=== PATIENT | female | born 1980 | race Caucasian/White ===

== ENCOUNTER → 2018-06-10 | Outpatient (CLI) | payer MEDICARE ==
--- NOTE | 2018-06-10 12:06 | US ---
EXAMINATION TYPE: US venous doppler duplex LE RT DATE OF EXAM: 06/10/2018 11:39 AM COMPARISON: NONE CLINICAL HISTORY: I80.9 Phlebitis and thrombophlebitis of unspec.... Patient fell 05/18/18, dislocate d right knee. Pain and edema right lower leg SIDE PERFORMED: right TECHNIQUE: The lower extremity deep venous system is examined utilizing real time linear array sonog agustín with graded compression, doppler sonography and color-flow sonography. VESSELS IMAGED: External Iliac Vein (EIV) Common Femoral Vein Deep Femoral Vein Greater Saphenous Vein * Femoral Vein Popliteal Vein Small Saphenous Vein * Proximal Calf Veins (* superficial vessels) Right Leg: No evidence of DVT. Only short segment of PTV visualized IMPRESSION: No evidence for DVT at this time.
== END | disposition home or self-care (01) ==
LOC: RADUSWWP 11:11
PROVIDERS: ATTEND Orthopaedic Surgery
DX: I80.9 Phlebitis and thrombophlebitis of unspecified site (principal); M22.3X1 Other derangements of patella, right knee; F17.200 Nicotine dependence, unspecified, uncomplicated

== ENCOUNTER 2018-07-30 12:09 | Emergency (ER) | payer MEDICARE ==
[2018-07-30 12:28] VITALS: RESP 16
[2018-07-30] MEDS ORDERED: SODIUM CHLORIDE 0.9% 1,000 ML IV STA (12:52)
[2018-07-30] MEDS ORDERED: PANTOPRAZOLE 40 MG/10 ML VIAL IVP STA (12:52)
--- NOTE | 2018-07-30 12:59 | ED ---
Weakness HPI - General Chief complaint: GI Bleed Stated complaint: Rectal bleeding/back pain Time Seen by Provider: 07/30/18 12:52 Source: patient, RN notes reviewed, old records reviewed Mode of arrival: ambulatory Limitations: no limitations - History of Present Illness Initial comments: This is a 29-year-old female the ER for evaluation. Today she presents for evaluation regards to weakness. Blood in her stool, weight loss. Patient does feel lightheaded and dizzy at times. No episodes of syncope or near-syncope. No recent travel history no significant sick contacts. Patient is possibly increasing the last 2 years but more pronounced in the last month and a half. No significant family history of CVA. No change in appetite no diarrhea or intentional weight loss, no no exercise MD Complaint: generalized weakness (Weight loss) -: year(s) Location: generalized Severity: mild Severity scale (1-10): 3 Quality: other (No pain) Consistency: constant Improves with: none Worsens with: none Context: other (Denies) Associated Symptoms: dark stools, loss of appetite, nausea/vomiting - Related Data Home Medications Medication Instructions Recorded Confirmed Multivitamins, Thera [Multivitamin 1 tab PO DAILY 07/30/18 07/30/18 (formulary)] diphenhydrAMINE [Benadryl] 50 mg PO HS 07/30/18 07/30/18 Previous Rx's Medication Instructions Recorded Nitrofurantoin Monohyd/M-Cryst 100 mg PO Q12HR #14 cap 07/30/18 [Macrobid] Allergies Allergy/AdvReac Type Severity Reaction Status Date / Time No Known Allergies Allergy Verified 07/30/18 13:06 Review of Systems ROS Statement: Those systems with pertinent positive or pertinent negative responses have been documented in the HPI. ROS Other: All systems not noted in ROS Statement are negative. Past Medical History Past Medical History: No Reported History History of Any Multi-Drug Resistant Organisms: None Reported Past Surgical History: No Surgical Hx Reported Past Psychological History: ADD/ADHD, Anxiety, Depression, Panic Disorder Smoking Status: Current every day smoker Past Alcohol Use History: None Reported Past Drug Use History: None Reported General Exam Limitations: no limitations General appearance: alert, in no apparent distress Head exam: Present: atraumatic, normocephalic, normal inspection Eye exam: Present: normal appearance, PERRL, EOMI. Absent: scleral icterus, conjunctival injection, periorbital swelling ENT exam: Present: normal exam, mucous membranes moist Neck exam: Present: normal inspection. Absent: tenderness, meningismus, lymphadenopathy Respiratory exam: Present: normal lung sounds bilaterally. Absent: respiratory distress, wheezes, rales, rhonchi, stridor Cardiovascular Exam: Present: regular rate, normal rhythm, normal heart sounds. Absent: systolic murmur, diastolic murmur, rubs, gallop, clicks GI/Abdominal exam: Present: soft, normal bowel sounds. Absent: distended, tenderness, guarding, rebound, rigid Extremities exam: Present: normal inspection, full ROM, normal capillary refill. Absent: tenderness, pedal edema, joint swelling, calf tenderness Back exam: Present: normal inspection Neurological exam: Present: alert, oriented X3, CN II-XII intact Psychiatric exam: Present: normal affect, normal mood Skin exam: Present: warm, dry, intact, normal color. Absent: rash Course Vital Signs 07/30/18 07/30/18 12:25 13:17 Temperature 98.2 F Pulse Rate 85 77 Respiratory 16 16 Rate Blood Pressure 127/76 120/80 O2 Sat by Pulse 96 97 Oximetry - Reevaluation(s) Reevaluation #1: 07/30/18 15:37 Medical record reviewed Reevaluation #2: 07/30/18 15:37 Patient and family at length regarding results, questions answered Medical Decision Making - Medical Decision Making 29 female the ER for evaluation of what she thought was blood in her stools. As well as in urine, patient be treated for hemorrhagic cystitis, cultured and discharged home - Lab Data Result diagrams: 07/30/18 13:20 07/30/18 13:20 Lab Results 07/30/18 07/30/18 07/30/18 Range/Units 13:15 13:20 13:20 WBC 10.6 (3.8-10.6) k/uL RBC 4.94 (3.80-5.40) m/uL Hgb 14.2 (11.4-16.0) gm/dL Hct 44.2 (34.0-46.0) % MCV 89.5 (80.0-100.0) fL MCH 28.8 (25.0-35.0) pg MCHC 32.1 (31.0-37.0) g/dL RDW 12.9 (11.5-15.5) % Plt Count 362 (150-450) k/uL Neutrophils % 72 % Lymphocytes % 20 % Monocytes % 4 % Eosinophils % 1 % Basophils % 0 % Neutrophils # 7.7 (1.3-7.7) k/uL Lymphocytes # 2.2 (1.0-4.8) k/uL Monocytes # 0.4 (0-1.0) k/uL Eosinophils # 0.2 (0-0.7) k/uL Basophils # 0.0 (0-0.2) k/uL PT (9.0-12.0) sec INR (<1.2) APTT (22.0-30.0) sec Sodium (137-145) mmol/L Potassium (3.5-5.1) mmol/L Chloride (98-107) mmol/L Carbon Dioxide (22-30) mmol/L Anion Gap mmol/L BUN (7-17) mg/dL Creatinine (0.52-1.04) mg/dL Est GFR (CKD-EPI)AfAm (>60 ml/min/1.73 sqM) Est GFR (CKD-EPI)NonAf (>60 ml/min/1.73 sqM) Glucose (74-99) mg/dL Calcium (8.4-10.2) mg/dL Phosphorus (2.5-4.5) mg/dL Magnesium (1.6-2.3) mg/dL Total Bilirubin (0.2-1.3) mg/dL AST (14-36) U/L ALT (9-52) U/L Alkaline Phosphatase (38-126) U/L Troponin I (0.000-0.034) ng/mL Total Protein (6.3-8.2) g/dL Albumin (3.5-5.0) g/dL Lipase (23-300) U/L Urine Color Dark Brown Urine Appearance Turbid H (Clear) Urine pH 6.0 (5.0-8.0) Ur Specific [place] 1.029 (1.001-1.035) Urine Protein 2+ H (Negative) Urine Glucose (UA) Negative (Negative) Urine Ketones 3+ H (Negative) Urine Blood Large H (Negative) Urine Nitrite Negative (Negative) Urine Bilirubin Negative (Negative) Urine Urobilinogen 3.0 (<2.0) mg/dL Ur Leukocyte Esterase Large H (Negative) Urine RBC >182 H (0-5) /hpf Urine WBC 28 H (0-5) /hpf Ur Squamous Epith Cells 46 H (0-4) /hpf Urine Bacteria Rare H (None) /hpf Urine Mucus Many H (None) /hpf Blood Type O Positive Blood Type Recheck No Antibody Screen NEGATIVE Spec Expiration Date 08/02/2018231907/30/18 07/30/18 07/30/18 Range/Units 13:20 13:20 13:20 WBC (3.8-10.6) k/uL RBC (3.80-5.40) m/uL Hgb (11.4-16.0) gm/dL Hct (34.0-46.0) % MCV (80.0-100.0) fL MCH (25.0-35.0) pg MCHC (31.0-37.0) g/dL RDW (11.5-15.5) % Plt Count (150-450) k/uL Neutrophils % % Lymphocytes % % Monocytes % % Eosinophils % % Basophils % % Neutrophils # (1.3-7.7) k/uL Lymphocytes # (1.0-4.8) k/uL Monocytes # (0-1.0) k/uL Eosinophils # (0-0.7) k/uL Basophils # (0-0.2) k/uL PT 10.8 (9.0-12.0) sec INR 1.0 (<1.2) APTT 27.6 (22.0-30.0) sec Sodium 139 (137-145) mmol/L Potassium 3.5 (3.5-5.1) mmol/L Chloride 105 (98-107) mmol/L Carbon Dioxide 23 (22-30) mmol/L Anion Gap 11 mmol/L BUN 9 (7-17) mg/dL Creatinine 0.56 (0.52-1.04) mg/dL Est GFR (CKD-EPI)AfAm >90 (>60 ml/min/1.73 sqM) Est GFR (CKD-EPI)NonAf >90 (>60 ml/min/1.73 sqM) Glucose 93 (74-99) mg/dL Calcium 10.1 (8.4-10.2) mg/dL Phosphorus 2.8 (2.5-4.5) mg/dL Magnesium 2.0 (1.6-2.3) mg/dL Total Bilirubin 0.7 (0.2-1.3) mg/dL AST 14 (14-36) U/L ALT 20 (9-52) U/L Alkaline Phosphatase 62 (38-126) U/L Troponin I <0.012 (0.000-0.034) ng/mL Total Protein 7.3 (6.3-8.2) g/dL Albumin 4.8 (3.5-5.0) g/dL Lipase 62 (23-300) U/L Urine Color Urine Appearance (Clear) Urine pH (5.0-8.0) Ur Specific [place] (1.001-1.035) Urine Protein (Negative) Urine Glucose (UA) (Negative) Urine Ketones (Negative) Urine Blood (Negative) Urine Nitrite (Negative) Urine Bilirubin (Negative) Urine Urobilinogen (<2.0) mg/dL Ur Leukocyte Esterase (Negative) Urine RBC (0-5) /hpf Urine WBC (0-5) /hpf Ur Squamous Epith Cells (0-4) /hpf Urine Bacteria (None) /hpf Urine Mucus (None) /hpf Blood Type Blood Type Recheck Antibody Screen Spec Expiration Date - Radiology Data Radiology results: report reviewed (CT chest abdomen pelvis negative for acute disease), image reviewed Disposition Clinical Impression: Hemorrhagic cystitis, UTI (urinary tract infection), Hematuria Disposition: HOME SELF-CARE Condition: Good Instructions (If sedation given, give patient instructions): Hematuria (ED), Urinary Tract Infection in Women (ED) Prescriptions: Nitrofurantoin Monohyd/M-Cryst [Macrobid] 100 mg PO Q12HR #14 cap Is patient prescribed a controlled substance at d/c from ED?: No Referrals: None,Stated [Primary Care Provider] - 1-2 days
[2018-07-30 13:34] LABS: Basophils % (A) 0 %; Eosinophils # (A) 0.2 k/uL (0-0.7); Eosinophils % (A) 1 %; HCT 44.2 % (34.0-46.0); HGB 14.2 gm/dL (11.4-16.0); Lymphocytes # (A) 2.2 k/uL (1.0-4.8); Lymphocytes % (A) 20 %; MCH 28.8 pg (25.0-35.0); MCHC 32.1 g/dL (31.0-37.0); MCV 89.5 fL (80.0-100.0); Mean Platelet Volume 6.8; Monocytes # (A) 0.4 k/uL (0-1.0); Monocytes % (A) 4 %; Neutrophils # (A) 7.7 k/uL (1.3-7.7); Neutrophils % (A) 72 %; Platelet Count 362 k/uL (150-450); RBC 4.94 m/uL (3.80-5.40); RDW 12.9 % (11.5-15.5); WBC 10.6 k/uL (3.8-10.6)
[2018-07-30 13:38] LABS: Partial Thromboplastin Time 27.6 sec (22.0-30.0); Prothrombin Time 10.8 sec (9.0-12.0)
[2018-07-30 13:40] LABS: ALT 20 U/L (9-52); AST 14 U/L (14-36); Albumin 4.8 g/dL (3.5-5.0); Alkaline Phosphatase 62 U/L (38-126); Anion Gap 11 mmol/L; Blood Urea Nitrogen 9 mg/dL (7-17); Calcium 10.1 mg/dL (8.4-10.2); Carbon Dioxide 23 mmol/L (22-30); Chloride 105 mmol/L (98-107); Glucose 93 mg/dL (74-99); Lipase 62 U/L (23-300); Phosphorus 2.8 mg/dL (2.5-4.5); Potassium 3.5 mmol/L (3.5-5.1); Sodium 139 mmol/L (137-145); Total Bilirubin 0.7 mg/dL (0.2-1.3); Total Protein 7.3 g/dL (6.3-8.2)
[2018-07-30 15:06] LABS: Appearance,Urine Turbid (Clear); Bacteria,Urine Rare /hpf; Bilirubin,Urine Negative (Negative); Blood,Urine Large (Negative); Color,Urine Dark Brown; Glucose,Urine (UA) Negative (Negative); Ketones,Urine 3+ (Negative); Leukocyte Esterase,Urine Large (Negative); Mucus,Urine Many /hpf; Nitrite,Urine Negative (Negative); Protein,Urine 2+ (Negative); RBC,Urine >182 /hpf (0-5); Specific Gravity,Urine 1.029 (1.001-1.035); Squamous Epithelial Cell,Urine 46 /hpf (0-4); WBC,Urine 28 /hpf (0-5)
--- NOTE | 2018-07-30 15:08 | CT ---
EXAMINATION TYPE: CT ChestAbdPelvis w con DATE OF EXAM: 07/30/2018 COMPARISON: NONE HISTORY: Rectal bleeding and back pain CT DLP: 827.7 mGycm. Automated Exposure Control for Dose Reduction was Utilized. CONTRAST: CT scan of the thorax, abdomen and pelvis is performed with IV Contrast, patient injected with 100 ml mL of Isovue 300. FINDINGS: LUNGS: The lungs are grossly clear, there is no concerning parenchymal mass or nodule identified. T here is no pleural effusion or pneumothorax seen. The tracheobronchial tree is patent. MEDIASTINUM: There are no greater than 1 cm hilar or mediastinal lymph nodes. No pericardial effusi on is seen. LIVER/GB: No significant abnormality is appreciated. No cholelithiasis. PANCREAS: No significant abnormality is seen. SPLEEN: No significant abnormality is seen. No splenomegaly. ADRENALS: No nodule or thickening. KIDNEYS: Kidneys enhance and excrete symmetrically. No hydronephrosis. BOWEL: Evaluation of the bowel is limited without contrast. No dilated large or small bowel is seen. No pericolonic or perienteric fat stranding. GENITAL ORGANS: Follicular changes are incidentally noted of the right ovary measuring up to 1.9 cm. Midline intrauterine device is present. LYMPH NODES: No greater than 1cm abdominal or pelvic lymph nodes are appreciated. OSSEOUS STRUCTURES: No significant abnormality is seen. IMPRESSION: Unremarkable CT of the chest, abdomen, and pelvis other than follicular changes of the ri ght ovary, likely physiologic. In this patient with rectal bleeding note the bowel is suboptimally ev aluated without oral contrast.
[2018-07-30 16:10] VITALS: BP 120/87; PULSE 82; TEMP 97.6
== END 2018-07-30 16:09 | disposition home or self-care (01) ==
LOC: EC 12:09
DX: N30.91 Cystitis, unspecified with hematuria (principal); F17.200 Nicotine dependence, unspecified, uncomplicated
CPT/HCPCS: 36415; 86900; 86901; 80053; 83690; 83735; 84100; 84484; 85025; 85610; 85730; 86850; 81001; 71260; 74177; 99285; 96374; 96375; 96361 ×2; J0696; C9113; Q9967

== ENCOUNTER 2020-04-26 10:26 | Observation (INO) | payer MEDICARE ==
[2020-04-26] MEDS ORDERED: ASPIRIN 81 MG PO STA (10:45)
[2020-04-26] MEDS ORDERED: ALPRAZolam 0.5 MG TAB PO STA (10:46)
--- NOTE | 2020-04-26 10:51 | ED ---
Chest Pain HPI - General Chief Complaint: Chest Pain Stated Complaint: chest pressure/sob Time Seen by Provider: 04/26/20 10:38 Source: patient Mode of arrival: ambulatory Limitations: no limitations - History of Present Illness Initial Comments: 3-year-old female presenting for morning chest pain 2 weeks with episode this morning x 3 hours-chest pain now resolved. Patient states that she has had swelling throughout the night and wakes up in the morning with chest pressure. She denies being woken up in the night with chest pressure or pain. She states at times she feels like she has shortness of breath. Patient denies any known fevers she states she's had occasional cough. As well as associated nausea and belching when the chest pressure is present she denies jaw or arm or back pain she denies abdominal pain. She states she has had loose stools for 1 year. Patient denies any right upper quadrant pain, vomiting. Pt denies specific aggr avating or alleviating factors. She denies noticing increased pain with exertion. Pt states she does struggle with anxiety. Patient denies leg swelling, calf pain hemoptysis, exogenous hormone use, recent surgeries, , hx DVT/pE or family history, denies recent trauma or injuries. She denies pleuritic chest pain or pain with deep inspiration. Remaining ROS (-) - Related Data Home Medications Medication Instructions Recorded Confirmed Famotidine [Pepcid] 20 mg PO DAILY PRN 04/26/20 04/26/20 Simethicone [Gas-X] 125 mg PO Q4H PRN 04/26/20 04/26/20 Allergies Allergy/AdvReac Type Severity Reaction Status Date / Time Penicillins AdvReac Unknown Verified 04/26/20 11:13 sulfamethoxazole AdvReac Unknown Verified 04/26/20 11:13 [From Bactrim] trimethoprim [From Bactrim] AdvReac Unknown Verified 04/26/20 11:13 Review of Systems ROS Statement: Those systems with pertinent positive or pertinent negative responses have been documented in the HPI. ROS Other: All systems not noted in ROS Statement are negative. EKG Findings - EKG Comments: EKG Findings:: Ventricular rate 84 bpm, [place] interval 134 ms, QRS evangelical 88 ms, QT/QTC 386/456 ms. This is normal sinus the sinus arrhythmia and no ST elevation or depression is appreciated. Past Medical History Past Medical History: No Reported History History of Any Multi-Drug Resistant Organisms: None Reported Past Surgical History: No Surgical Hx Reported Additional Past Surgical History / Comment(s): cervical Past Psychological History: Anxiety, Depression Smoking Status: Former smoker Past Alcohol Use History: None Reported Past Drug Use History: Marijuana General Exam - General Exam Comments Initial Comments: General: The patient is awake and alert, in no distress Eye: +3 mm pupils are equal, round and reactive to light, extra-ocular movements are intact. No nystagmus. There is normal conjunctiva bilaterally. No signs of icterus. Ears, nose, mouth and throat: There are moist mucous membranes and no oral lesions. Neck: The neck is supple, there is no tenderness or JVD. Cardiovascular: There is a regular rate and rhythm. No murmur, rub or gallop is appreciated. Respiratory: Lungs are clear to auscultation, respirations are non-labored, breath sounds are equal. No wheezes, stridor, rales, or rhonchi. Gastrointestinal: Soft, non-distended, non-tender abdomen without masses or organomegaly noted. There is no rebound or guarding present. Musculoskeletal: Normal ROM, no tenderness. Strength 5/5. Sensation intact. Radial and DP pulses equal bilaterally 2+. Neurological: A&O x 3. CN II-XII intact grossly, There are no obvious motor or sensory deficits. Coordination appears grossly intact. Speech is normal. Skin: Skin is warm and dry and no rashes or lesions are noted. No calf swelling or pain, NO LE edema, legs/calves appear equal. Psychiatric: Cooperative, appropriate mood & affect, normal judgment. Limitations: no limitations Course Vital Signs 04/26/20 04/26/20 04/26/20 10:29 10:45 11:02 Temperature 98.3 F Pulse Rate 86 66 Pulse Rate [ 77 Printing Roller Polisher ] Respiratory 18 16 Rate Blood Pressure 138/82 134/86 O2 Sat by Pulse 99 99 Oximetry 04/26/20 12:16 Temperature 98.1 F Pulse Rate 73 Pulse Rate [ Printing Roller Polisher ] Respiratory 16 Rate Blood Pressure 121/79 O2 Sat by Pulse 96 Oximetry Chest Pain MDM - MDM chest discomfort x 3 hours prior to arrival. ekg no ischemic changes. troponin (-). No current cp. pt will be admitted for serial troponin. pt agreeable. dr fernando spoke with Dr. grove and is agreeable to admission. serial troponins ordered. Disposition Clinical Impression: Chest discomfort, Dyspnea Disposition: ADMITTED IP TO THIS HOSP Condition: Stable Is patient prescribed a controlled substance at d/c from ED?: No Time of Disposition: 12:29 Decision to Admit Reason: Admit from EC Decision Date: 04/26/20 Decision Time: 12:29
[2020-04-26 11:08] LABS: Basophils % (A) 0 %; Eosinophils # (A) 0.1 k/uL (0-0.7); Eosinophils % (A) 1 %; HCT 42.9 % (34.0-46.0); HGB 13.8 gm/dL (11.4-16.0); Lymphocytes # (A) 1.4 k/uL (1.0-4.8); Lymphocytes % (A) 18 %; MCH 28.8 pg (25.0-35.0); MCHC 32.2 g/dL (31.0-37.0); MCV 89.5 fL (80.0-100.0); Mean Platelet Volume 6.9; Monocytes # (A) 0.2 k/uL (0-1.0); Monocytes % (A) 3 %; Neutrophils # (A) 5.9 k/uL (1.3-7.7); Neutrophils % (A) 77 %; Platelet Count 365 k/uL (150-450); RDW 12.9 % (11.5-15.5); WBC 7.7 k/uL (3.8-10.6)
[2020-04-26 11:18] LABS: INR 0.9 (<1.2); Partial Thromboplastin Time 22.9 sec (22.0-30.0)
[2020-04-26 11:19] LABS: ALT 15 U/L (4-34); AST 18 U/L (14-36); African American GFR (CKD) >90 (>60 ml/min/1.73 sqM); Albumin 4.7 g/dL (3.5-5.0); Alkaline Phosphatase 64 U/L (38-126); Anion Gap 6 mmol/L; Blood Urea Nitrogen 10 mg/dL (7-17); Calcium 9.9 mg/dL (8.4-10.2); Carbon Dioxide 26 mmol/L (22-30); Chloride 107 mmol/L (98-107); Glucose 121 mg/dL (74-99); Lipase 91 U/L (23-300); Non-African American GFR(CKD) >90 (>60 ml/min/1.73 sqM); Potassium 3.7 mmol/L (3.5-5.1); Sodium 139 mmol/L (137-145); Total Bilirubin 0.5 mg/dL (0.2-1.3); Total Protein 7.7 g/dL (6.3-8.2)
--- NOTE | 2020-04-26 11:30 | XR ---
EXAMINATION TYPE: XR chest 2V DATE OF EXAM: 04/26/2020 COMPARISON: 10/22/2009 HISTORY: 39-year-old female with chest pain TECHNIQUE: PA and lateral views FINDINGS: The cardiomediastinal silhouette, aorta, and pulmonary vasculature are within normal limits. Lungs an d pleural spaces are clear. IMPRESSION: No acute cardiopulmonary process.
[2020-04-26] MEDS ORDERED: NITROGLYCERIN SL TABS 0.4 MG TAB SUBLINGUAL PRN (12:23)
--- NOTE | 2020-04-26 14:44 | P.CRDCN ---
History of Present Illness Consult date: 04/26/20 History of present illness: CHIEF COMPLAINT: Chest pain HISTORY OF PRESENT ILLNESS: This is a 39-year old female with a past medical history significant for anxiety, depression, and former nicotine dependence. 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 We have been asked to see the patient in consultation for chest pain. Patient examined at the bedside in the emergency room. Patient reports she has been feeling chest pressure for the last 2 weeks. She states the pressure is in the middle of her chest and has been occurring intermittently. She reports feeling short of breath when she has the chest pressure and also occasionally at rest. She denies any radiation of the symptoms. She states when she starts having this pressure she also begins burping. However she states the pain is not related at all to food. She states the pain is not worse with movement or exertion. The pain is not worse with deep inspiration. It is not reproducible with chest wall palpation. Patient states she used to smoke and quit in 2019. She denies a family history of premature coronary artery disease. DIAGNOSTICS: EKG reveals sinus mechanism with no signs of acute ischemia Chest xray negative for acute process Laboratory data: W BC 7.7. Hemoglobin 13.8. Platelet count 365. Sodium 139. Potassium 3.7. BUN 10. Creatinine 0.61. Magnesium 2.0. Troponin negative 1. Current home cardiac medications include none REVIEW OF SYSTEMS: At the time of my exam: CONSTITUTIONAL: Denies fever or chills. HEENT: Denies blurred vision, vision changes, or eye pain. Denies hemoptysis CARDIOVASCULAR: Denies chest pain, orthopnea, PND or palpitations RESPIRATORY: No shortness of breath. GASTROINTESTINAL: Denies abdominal pain. Denies nausea or vomiting. HEMATOLOGIC: Denies bleeding disorders. GENITOURINARY: Denies any blood in urine. SKIN: Denies pruitis. Denies rash. PHYSICAL EXAM: VITAL SIGNS: Reviewed. GENERAL: Well-developed in no acute distress. HEENT: Head is normocephalic. Pupils are equal, round. Sclerae anicteric. Mucous membranes of the mouth are moist. Neck supple. No JVD or thyromegaly LUNGS: Respirations even and unlabored. Lungs essentially clear to auscultation bilaterally. HEART: Regular rate and rhythm. S1 and S2 heard. ABDOMEN: Soft. Nondistended. Nontender. EXTREMITIES: Normal range of motion. No clubbing or cyanosis. Peripheral pulses intact. No lower extremity edema NEUROLOGIC: Awake and alert. Oriented x 3. ASSESSMENT: Chest pressure x 2 weeks Anxiety Depression Former nicotine dependence, patient quit smoking in 2019 PLAN: Continue to trend troponins Obtain d-dimer Discontinue aspirin Obtain 2-D echo to assess cardiac structure and function Nothing by mouth at midnight Patient to undergo stress echo to assess for reversible ischemia Nurse practitioner note has been reviewed by physician. Signing provider agrees with the documented findings, assessment, and plan of care. Past Medical History Past Medical History: No Reported History History of Any Multi-Drug Resistant Organisms: None Reported Past Surgical History: No Surgical Hx Reported Additional Past Surgical History / Comment(s): cervical Past Psychological History: Anxiety, Depression Smoking Status: Former smoker Past Alcohol Use History: None Reported Past Drug Use History: Marijuana Medications and Allergies Home Medications Medication Instructions Recorded Confirmed Type Famotidine [Pepcid] 20 mg PO DAILY PRN 04/26/20 04/26/20 History Simethicone [Gas-X] 125 mg PO Q4H PRN 04/26/20 04/26/20 History Allergies Allergy/AdvReac Type Severity Reaction Status Date / Time Penicillins AdvReac Unknown Verified 04/26/20 11:13 sulfamethoxazole AdvReac Unknown Verified 04/26/20 11:13 [From Bactrim] trimethoprim [From Bactrim] AdvReac Unknown Verified 04/26/20 11:13 Physical Exam Vitals: Vital Signs Temp Pulse Pulse Resp BP Pulse Ox 04/26/20 14:08 97.9 F 68 16 136/84 98 04/26/20 12:16 98.1 F 73 16 121/79 96 04/26/20 11:02 66 16 134/86 99 04/26/20 10:45 77 04/26/20 10:29 98.3 F 86 18 138/82 99 Intake and Output 04/25/20 04/26/20 04/26/20 22:59 06:59 14:59 Other: Weight 86.183 kg Results 04/26/20 10:50 04/26/20 10:50 Cardiac Enzymes 04/26/20 04/26/20 Range/Units 10:50 10:50 AST 18 (14-36) U/L Troponin I <0.012 (0.000-0.034) ng/mL Coagulation 04/26/20 Range/Units 10:50 PT 10.0 (9.0-12.0) sec APTT 22.9 (22.0-30.0) sec CBC 04/26/20 Range/Units 10:50 WBC 7.7 (3.8-10.6) k/uL RBC 4.80 (3.80-5.40) m/uL Hgb 13.8 (11.4-16.0) gm/dL Hct 42.9 (34.0-46.0) % Plt Count 365 (150-450) k/uL Comprehensive Metabolic Panel 04/26/20 Range/Units 10:50 Sodium 139 (137-145) mmol/L Potassium 3.7 (3.5-5.1) mmol/L Chloride 107 (98-107) mmol/L Carbon Dioxide 26 (22-30) mmol/L BUN 10 (7-17) mg/dL Creatinine 0.61 (0.52-1.04) mg/dL Glucose 121 H (74-99) mg/dL Calcium 9.9 (8.4-10.2) mg/dL AST 18 (14-36) U/L ALT 15 (4-34) U/L Alkaline Phosphatase 64 (38-126) U/L Total Protein 7.7 (6.3-8.2) g/dL Albumin 4.7 (3.5-5.0) g/dL Current Medications Generic Name Dose Route Start Last Admin Trade Name Freq PRN Reason Stop Dose Admin Aspirin 325 mg 04/27/20 09:00 Aspirin 325 Mg Tab PO DAILY DENEEN Nitroglycerin 0.4 mg 04/26/20 12:23 Nitroglycerin Sl Tabs 0.4 Mg Tab SUBLINGUAL Q5M PRN Chest Pain Intake and Output 04/25/20 04/26/20 04/26/20 22:59 06:59 14:59 Other: Weight 86.183 kg Patient Weight 04/27/20 06:59 Weight 86.183 kg 04/26/20 10:50 04/26/20 10:50
--- NOTE | 2020-04-26 17:07 | ECHOF ---
Referral Reason:LV function, chest pain MEASUREMENTS -------- HEIGHT: 160.0 cm WEIGHT: 86.2 kg BP: RVIDd: 2.6 cm (< 3.3) IVSd: 0.9 cm (0.6 - 1.1) LVIDd: 4.6 cm (3.9 - 5.3) LVPWd: 0.9 cm (0.6 - 1.1) IVSs: 1.3 cm LVIDs: 3.1 cm LVPWs: 1.3 cm LA Diam: 2.7 cm (2.7 - 3.8) Ao Diam: 2.4 cm (2.0 - 3.7) AV Cusp: 1.7 cm (1.5 - 2.6) MV EXCURSION: 13.254 mm (> 18.000) MV EF SLOPE: 61 mm/s (70 - 150) EPSS: 0.6 cm MV E Jose Armando: 1.18 m/s MV DecT: 174 ms MV A Jose Armando: 0.85 m/s MV E/A Ratio: 1.39 RAP: 5.00 mmHg RVSP: 20.45 mmHg FINDINGS -------- Sinus rhythm. This was a technically good study. LV size, wall thickness and systolic function are normal, with an EF greater than 55%. The left fidel tricular size is normal. The right ventricle is normal in size. The left atrial size is normal. The right atrial size is normal. The aortic valve is trileaflet, and appears structurally normal. No aortic stenosis or regurgitation. Mild mitral regurgitation is present. Mild tricuspid regurgitation present. Right ventricular systolic pressure is normal at < 35 mmHg. There is no pulmonic regurgitation present. The aortic root size is normal. There is no pericardial effusion. CONCLUSIONS -------- 1. LV size, wall thickness and systolic function are normal, with an EF greater than 55%. 2. The left ventricular size is normal. 3. The right ventricle is normal in size. 4. The left atrial size is normal. 5. The right atrial size is normal. 6. Mild mitral regurgitation is present. 7. Mild tricuspid regurgitation present. 8. The aortic root size is normal. 9. There is no pericardial effusion. CHANNEL PARTNERS: Ida Swain RDCS
[2020-04-26 20:22] VITALS: RESP 16
[2020-04-26] MEDS ORDERED: FAMOTIDINE 20 MG TAB PO PRN (23:00)
[2020-04-26] MEDS ORDERED: SIMETHICONE 40 MG/0.6 ML DROPS 2,000 MG/30 ML BOTTLE PO PRN (23:00)
[2020-04-27 03:10] LABS: Cholesterol 201 mg/dL (<200); HDL Cholesterol 58 mg/dL (40-60); LDL Cholesterol,Calculated 117 mg/dL (0-99); Triglycerides 128 mg/dL (<150)
[2020-04-27 07:38] VITALS: BP 118/74; PULSE 64; TEMP 97.7
[2020-04-27] MEDS ORDERED: ASPIRIN 325 MG TAB PO SCH (09:00)
--- NOTE | 2020-04-27 10:25 | P.PN ---
Subjective Progress Note Date: 04/27/20 CHIEF COMPLAINT: Chest pain HISTORY OF PRESENT ILLNESS: 04/26/2020 This is a 39-year old female with a past medical history significant for anxiety, depression, and former nicotine dependence. Patient does not follow with a patient financial advocate. We have been asked to see the patient in consultation for chest pain. Patient examined at the bedside in the emergency room. Patient reports she has been feeling chest pressure for the last 2 weeks. She states the pressure is in the middle of her chest and has been occurring intermittently. She reports feeling short of breath when she has the chest pressure and also occasionally at rest. She denies any radiation of the symptoms. She states when she starts having this pressure she also begins burping. However she states the pain is not related at all to food. She states the pain is not worse with movement or exertion. The pain is not worse with deep inspiration. It is not reproducible with chest wall palpation. Patient states she used to smoke and quit in 2019. She denies a family history of premature coronary artery disease. 04/27/2020 Patient examined this morning. Patient denies any chest pain or pressure. She denies shortness of breath. Echocardiogram completed revealed ejection fraction greater than 55%, mild mitral regurgitation, and mild tricuspid regurgitation. Vital signs are stable. PHYSICAL EXAM: VITAL SIGNS: Reviewed. GENERAL: Well-developed in no acute distress. HEENT: Head is normocephalic. Pupils are equal, round. Sclerae anicteric. Mucous membranes of the mouth are moist. Neck supple. No JVD or thyromegaly LUNGS: Respirations even and unlabored. Lungs essentially clear to auscultation bilaterally. HEART: Regular rate and rhythm. S1 and S2 heard. ABDOMEN: Soft. Nondistended. Nontender. EXTREMITIES: Normal range of motion. No clubbing or cyanosis. Peripheral pulses intact. No lower extremity edema NEUROLOGIC: Awake and alert. Oriented x 3. ASSESSMENT: Chest pressure x 2 weeks Anxiety Depression Former nicotine dependence, patient quit smoking in 2018 PLAN: Patient to undergo stress echo to assess for reversible ischemia If stress echo is negative, the patient may be discharged home today from a cardiac perspective Nurse practitioner note has been reviewed by physician. Signing provider agrees with the documented findings, assessment, and plan of care. Objective - Vital Signs Vital signs: Vital Signs Temp 97.7 F 04/27/20 07:37 Pulse 64 04/27/20 07:37 Resp 16 04/27/20 08:39 BP 118/74 04/27/20 07:37 Pulse Ox 98 04/27/20 07:37 Intake & Output 04/26/20 04/27/20 04/27/20 18:59 06:59 18:59 Weight 86.183 kg 86.18 kg Other: Voiding Method Toilet Toilet Toilet # Voids 1 1 1 - Labs CBC & Chem 7: 04/26/20 10:50 04/26/20 10:50 Labs: Abnormal Lab Results - Last 24 Hours (Table) 04/26/20 04/26/20 Range/Units 10:50 10:50 Glucose 121 H (74-99) mg/dL Cholesterol 201 H (<200) mg/dL LDL Cholesterol, Calc 117 H (0-99) mg/dL
--- NOTE | 2020-04-27 11:24 | ECHOS ---
STRESS ECHOCARDIOGRAM INDICATIONS: Chest pain. MEDICATIONS: BASELINE HEART RATE: 69 BASELINE BLOOD PRESSURE: 106/56 MAXIMUM HEART RATE: 171 MAXIMUM BLOOD PRESSURE: 152/84 85% MPHR: 153 100% MPHR: 180 METS: 11 MAXIMUM STAGE REACHED: IV TOTAL EXERCISE TIME: 9-1/2 minutes CLINICAL INFORMATION: Baseline EKG shows sinus rhythm, normal axis, normal intervals. Patient exercised on Broderick protocol for a total of 9-1/2 minutes achieving 10 METs, 95% of predicted maximal heart rate without chest pain or diagnostic ST-segment depression. Baseline echo shows normal left ventricular size, wall motion and systolic function. Postexercise, there is normal hyperdynamic response of all segments of myocardium noted. CONCLUSIONS: 1. Excellent exercise tolerance. 2. Negative stress test by EKG criteria. 3. Negative stress echo. MMODL / IJN: [id number] /
--- NOTE | 2020-04-27 20:43 | P.HPIM ---
History of Present Illness H&P Date: 04/27/20 Chief Complaint: Chest pressure History of presenting complaint: This is a pleasant 39-year-old patient of Dr. kenyon from [facility]. And other good health. For about 2 weeks she's been noting increasing amount of burping. She also notices increasing heartburn. Also had some weight gain. Along with history noted some intermittent chest pressure. But of burping seems to be the predominant symptom. No dizziness no lightheadedness. No fever no chills. Not related to activity. Admitted for the same. Review of systems: GEN.: None EYES: None HEENT: None NECK: None RESPIRATORY: None CARDIOVASCULAR: As above GASTROINTESTINAL: As above GENITOURINARY: None MUSCULOSKELETAL: None LYMPHATICS: None HEMATOLOGICAL: None PSYCHIATRY: None NEUROLOGICAL: None Past medical history to include: Anxiety, reflux Social history: Does smoke 4 cigarettes a day.. . This medical marijuana for anxiety. Family history: Reviewed, noncontributory to presentation Physical examination: VITAL SIGNS: 97.7, 64, 16, 118/74, 98% room air GENERAL: BMI 33.1, sitting up comfortable. EYES: Pupils equal. Conjunctiva normal. HEENT: External appearance of nose and ears normal, oral cavity grossly normal. NECK: JVD not raised; masses not palpable. HEART: First and second heart sounds are normal; no edema. LUNGS: Respiratory rate normal; clear to auscultation. ABDOMEN: Soft, nontender, liver spleen not palpable, no masses palpable. PSYCH: Alert and oriented x3; mood and affect normal. NEUROLOGICAL: Cranial nerves grossly intact; no facial asymmetry, power and sensation grossly intact. LYMPHATICS: No lymph nodes palpable in the axilla and neck INVESTIGATIONS, reviewed in the clinical context: White count 7.7 hemoglobin 13.8 platelets 365 potassium 3.7 creatinine 0.61 Troponin I 3 negative LDL 117 Coronavirus-P/Cr-not detected EKG tracing personally reviewed by me-normal sinus rhythm Chest x-ray film personally reviewed by me-lung monzon clear Assessment: -Atypical anterior chest wall pain. Possibly related to esophageal spasm. Rule out a cardiac cause. -Worsening GERD -Anxiety not otherwise specified -Obesity BMI 33.1 Plan: Patient started and aspirin. Home medications resumed. Her nausea was consulted. They ordered a stress test. Past Medical History Past Medical History: No Reported History History of Any Multi-Drug Resistant Organisms: None Reported Past Surgical History: No Surgical Hx Reported Additional Past Surgical History / Comment(s): cervical Past Psychological History: Anxiety, Depression Smoking Status: Former smoker Past Alcohol Use History: None Reported Additional Past Alcohol Use History / Comment(s): Patient is a smoker 4 cigarettes per day since she was 13 years of age. She states she smokes marijuana on a regular basis and she obtains medical marijuana from a friend and smokes a bolus day. She denies any alcohol use. Patient lives at home with her and 3 children. She does have history of a DUI when she was 16 years of age. Past Drug Use History: Marijuana Medications and Allergies Home Medications Medication Instructions Recorded Confirmed Type Simethicone [Gas-X] 125 mg PO Q4H PRN 04/26/20 04/26/20 History Omeprazole [PriLOSEC] 20 mg PO AC-BID #60 cap 04/27/20 Rx Allergies Allergy/AdvReac Type Severity Reaction Status Date / Time Penicillins AdvReac Unknown Verified 04/26/20 11:13 sulfamethoxazole AdvReac Unknown Verified 04/26/20 11:13 [From Bactrim] trimethoprim [From Bactrim] AdvReac Unknown Verified 04/26/20 11:13 Physical Exam Vitals: Vital Signs Temp Pulse Pulse Resp BP BP Pulse Ox 04/27/20 08:39 16 04/27/20 07:37 97.7 F 64 16 118/74 98 04/27/20 03:00 97.8 F 78 16 124/84 99 04/26/20 20:21 97.5 F L 60 16 122/67 98 04/26/20 16:26 98.1 F 70 12 131/78 99 04/26/20 16:15 97.9 F 75 16 125/75 98 04/26/20 16:06 97.9 F 76 16 129/75 98 04/26/20 14:08 97.9 F 68 16 136/84 98 04/26/20 12:16 98.1 F 73 16 121/79 96 04/26/20 11:02 66 16 134/86 99 Intake and Output 04/26/20 04/27/20 04/27/20 22:59 06:59 14:59 Other: Voiding Method Toilet Toilet Toilet # Voids 1 1 1 Weight 86.183 kg 86.18 kg Results CBC & Chem 7: 04/26/20 10:50 04/26/20 10:50 Labs: Abnormal Lab Results - Last 24 Hours (Table) 04/26/20 04/26/20 Range/Units 10:50 10:50 Glucose 121 H (74-99) mg/dL Cholesterol 201 H (<200) mg/dL LDL Cholesterol, Calc 117 H (0-99) mg/dL Thrombosis Risk Factor Assmnt - Choose All That Apply Any of the Below Risk Factors Present?: Yes Each Factor Represents 1 point: Age 41-60 years Other Risk Factors: No Thrombosis Risk Factor Assessment Total Risk Factor Score: 1 Thrombosis Risk Factor Assessment Level: Low Risk
--- NOTE | 2020-04-27 20:45 | P.DS ---
Providers Date of admission: 04/26/20 12:12 Expected date of discharge: 04/27/20 Attending physician: Luis Chau Primary care physician: Dileep Turner MD Hospital Course: Chief Complaint: Chest pressure History of presenting complaint: This is a pleasant 39-year-old patient of Dr. turner from [facility]. And other good health. For about 2 weeks she's been noting increasing amount of burping. She also notices increasing heartburn. Also had some weight gain. Along with history noted some intermittent chest pressure. But of burping seems to be the predominant symptom. No dizziness no lightheadedness. No fever no chills. Not related to activity. Admitted for the same. Patient's troponins were negative. Stress echocardiogram was negative. Symptoms have been felt from his of vasospasm from increasing GERD. Started on PPI. Patient counseled. Consultation: Dr. Vanessa Richardson from cardiology Past medical history to include: Anxiety, reflux Social history: Does smoke 4 cigarettes a day.. . This medical marijuana for anxiety. Family history: Reviewed, noncontributory to presentation Physical examination: VITAL SIGNS: 97.7, 64, 16, 118/74, 98% room air GENERAL: BMI 33.1, sitting up comfortable. EYES: Pupils equal. Conjunctiva normal. HEENT: External appearance of nose and ears normal, oral cavity grossly normal. NECK: JVD not raised; masses not palpable. HEART: First and second heart sounds are normal; no edema. LUNGS: Respiratory rate normal; clear to auscultation. ABDOMEN: Soft, nontender, liver spleen not palpable, no masses palpable. PSYCH: Alert and oriented x3; mood and affect normal. NEUROLOGICAL: Cranial nerves grossly intact; no facial asymmetry, power and sensation grossly intact. LYMPHATICS: No lymph nodes palpable in the axilla and neck INVESTIGATIONS, reviewed in the clinical context: White count 7.7 hemoglobin 13.8 platelets 365 potassium 3.7 creatinine 0.61 Troponin I 3 negative LDL 117 Coronavirus-P/Cr-not detected EKG tracing personally reviewed by me-normal sinus rhythm Chest x-ray film personally reviewed by me-lung monzon clear 2-D echocardiogram-EF greater than 55% Stress echocardiogram-negative Assessment: -Atypical anterior chest wall pain. Possibly related to esophageal spasm. -Worsening GERD -Anxiety not otherwise specified -Obesity BMI 33.1 Disposition: Home Patient Condition at Discharge: Stable Plan - Discharge Summary Discharge Rx Participant: No New Discharge Prescriptions: New Omeprazole [PriLOSEC] 20 mg PO AC-BID #60 cap Continue Simethicone [Gas-X] 125 mg PO Q4H PRN PRN Reason: GAS PAIN Discontinued Famotidine [Pepcid] 20 mg PO DAILY PRN PRN Reason: Gi Upset Discharge Medication List Simethicone [Gas-X] 125 mg PO Q4H PRN 04/26/20 [History] Omeprazole [PriLOSEC] 20 mg PO AC-BID #60 cap 04/27/20 [Rx] Follow up Appointment(s)/Referral(s): Dileep Turner MD [Primary Care Provider] - 1-2 days (Please call [phone] to set up an appointment time) Miguel Richardson MD [STAFF PHYSICIAN] - As Needed Patient Instructions/Handouts: Chest Pain (DC), Heart Healthy Diet (DC), Dyspnea (DC) Discharge Disposition: HOME SELF-CARE
== END 2020-04-27 13:06 | disposition home or self-care (01) ==
LOC: EC 10:26 → 1SOBS 12:12
PROVIDERS: ADMIT Hospitalist; ATTEND Hospitalist
DX: R07.89 Other chest pain (principal); K21.9 Gastro-esophageal reflux disease without esophagitis; R06.02 Shortness of breath; R11.0 Nausea; F41.9 Anxiety disorder, unspecified; F32.9 Major depressive disorder, single episode, unspecified; F17.210 Nicotine dependence, cigarettes, uncomplicated; I08.1 Rheumatic disorders of both mitral and tricuspid valves; E66.9 Obesity, unspecified; Z68.33 Body mass index [BMI] 33.0-33.9, adult; Z20.828 Contact with and (suspected) exposure to other viral communicable diseases; Z79.899 Other long term (current) drug therapy; Z88.0 Allergy status to penicillin; Z88.1 Allergy status to other antibiotic agents; Z88.2 Allergy status to sulfonamides
CPT/HCPCS: 93005 ×2; 99285; 36415; 93306; 93351; 85379; 83880; 80061; 80053; 83690; 83735; 84484; 85025; 85610; 85730; 71046; G0378 ×2; U0003

== ENCOUNTER → 2020-06-04 | Outpatient (CLI) | payer MEDICARE ==
--- NOTE | 2020-06-05 09:15 | CT ---
EXAMINATION TYPE: CT abdomen pelvis wo con DATE OF EXAM: 06/04/2020 COMPARISON: 07/30/2018 HISTORY: 39-year-old female RLQ pain CT DLP: 644.30 mGycm. Automated exposure control for dose reduction was used. TECHNIQUE: Contiguous axial scanning of the abdomen and pelvis without IV contrast. Coronal and sagit desiree reconstructions performed. FINDINGS: Heart normal size without pericardial effusion. Lung bases clear without pleural effusion. Liver borderline enlarged at 17.8 cm. Otherwise, noncontrast appearance of the liver, gallbladder, adrenal glands, kidneys, spleen, and acosta creas show no gross anomaly. No nephrolithiasis or hydronephrosis is identified. No dilated small bowel, free fluid, or free air. No mesenteric or retroperitoneal lymphadenopathy argelia ntified. Portions of a normal appendix are visualized. Mild overall stool burden. No pericolonic inflammatory change. Bladder nondistended. Uterus anteverted. Both ovaries are visualized. There is a 2.6 cm dominant foll icle or functional cyst within the right ovary. No abnormal fluid collection in the pelvis or pelvic lymphadenopathy. Multiple pelvic phlebolith. Bones: No osseous destructive process. There is a right-sided disc osteophyte complex and mild facet arthropathy at L5-S1 contributing to moderate right L5-S1 neuroforaminal narrowing. IMPRESSION: No acute inflammatory process identified in the abdomen or pelvis to explain the patient's symptoms. Normal appendix. No nephrolithiasis or hydronephrosis seen. Incidental 2.6 cm dominant follicle or fu nctional cyst within the right ovary.
== END | disposition home or self-care (01) ==
LOC: RADCTMAIN 18:26
PROVIDERS: ATTEND Family Medicine
DX: R10.9 Unspecified abdominal pain (principal)
CPT/HCPCS: 74176

== ENCOUNTER → 2020-10-03 | Outpatient (CLI) | payer MEDICARE ==
--- NOTE | 2020-10-03 10:20 | NM ---
EXAMINATION TYPE: NM hepatobiliary w EF DATE OF EXAM: 10/03/2020 COMPARISON: CT abdomen and pelvis June 04, 2020 HISTORY: Diarrhea per order. Epigastric and abdominal pain with reflux and nausea per patient. TECHNIQUE: After the intravenous administration of 4.9 mCi Tc 99m Mebrofenin hepatobiliary scintigrap hy is performed. Immediate images post injection. FINDINGS: There is satisfactory initial accumulation of tracer by the liver. The gallbladder is visualized wit hin 20 minutes. The small bowel activity is noted within 30 minutes. At one hour 8 ounces of oral e nsure plus is given to mimic CCK and gallbladder ejection fraction is calculated at 79 %, in the norm al range. Therefore there is no scintigraphic evidence of cystic or common bile duct obstruction to suggest acute cholecystitis or gallbladder dyskinesia. IMPRESSION: Exam is within normal limits.
== END | disposition home or self-care (01) ==
LOC: RADNMMAIN 06:47
PROVIDERS: ATTEND Family Medicine
DX: K21.9 Gastro-esophageal reflux disease without esophagitis (principal)
CPT/HCPCS: 78226; A9537

== ENCOUNTER 2021-02-15 08:56 | Day surgery (SDC) | payer MEDICARE ==
[2021-02-13 10:12] VITALS: BMI 34.5
[~2021-02-15 08:56] MED LIST: LACTATED RINGERS 1,000 ML IV SCH
[2021-02-15] MEDS ORDERED: LACTATED RINGERS 1,000 ML IV ONE (09:09)
[2021-02-15] MEDS ORDERED: LIDOCAINE 1% INJ 10MG/ML (20 ML MDV) ONE (10:02)
[2021-02-15] MEDS ORDERED: PROPOFOL 10 MG/ML 20 ML VIAL IV ONE (10:02)
[2021-02-15 10:26] VITALS: RESP 16
--- NOTE | 2021-02-15 10:27 | P.PCN ---
Date of Procedure: 02/15/21 Procedure(s) Performed: BRIEF HISTORY: Patient is a 40-year-old pleasant female scheduled for an elective colonoscopy as a part of evaluation of chronic diarrhea for the last 1 year duration. She has bowel movements anywhere from 3-4 the day which are loose to watery in consistency. No blood or mucus in the stool. PROCEDURE PERFORMED: Colonoscopy biopsy and snare polypectomy. PREOPERATIVE DIAGNOSIS: Chronic diarrhea of 1 year duration IV sedation per Anesthesia. PROCEDURE: After informed consent was obtained, the patient, was brought into the endoscopy unit. IV sedation was administered by Anesthesia under continuous monitoring. Digital rectal examination was normal. Initially the Olympus CF-160 flexible video colonoscope was then inserted in the rectum, gradually advanced into the cecum without any difficulty. Careful examination was performed as the scope was gradually being withdrawn. Ileocecal valve and the appendiceal orifice were visualized and appeared normal. Prep was excellent. Mucosa of the cecum, ascending colon, transverse colon, descending colon, sigmoid colon, and rectum appeared normal. Retroflexion was performed in the rectum and no lesions were seen. The patient tolerated the procedure well. IMPRESSION: 1.5 cm polypoid lesion in the distal rectum just proximal to the dentate line status post snare polypectomy followed by multiple biopsies Rest the colon appeared normal RECOMMENDATIONS: Findings of this examination were discussed with the patient as well his family.. He was advised to follow with the biopsy results. She will be seen in office in 2 weeks.
[2021-02-15 10:34] VITALS: BP 110/66; PULSE 70
== END 2021-02-15 10:59 | disposition home or self-care (01) ==
LOC: ORWHC2ENDO 08:56
PROVIDERS: ATTEND Internal Medicine Gastroenterology
DX: K62.3 Rectal prolapse (principal); K52.9 Noninfective gastroenteritis and colitis, unspecified; K21.9 Gastro-esophageal reflux disease without esophagitis; F41.9 Anxiety disorder, unspecified; F32.9 Major depressive disorder, single episode, unspecified; Z79.899 Other long term (current) drug therapy; Z88.0 Allergy status to penicillin; Z88.2 Allergy status to sulfonamides
CPT/HCPCS: 81025; 88305; 45380; 45385; J2001; J2704

== ENCOUNTER 2021-03-07 13:47 | Emergency (ER) | payer MEDICARE ==
[2021-03-07 15:20] VITALS: RESP 18
[2021-03-07] MEDS ORDERED: IBUPROFEN 800 MG TAB PO STA (17:38)
[2021-03-07] MEDS ORDERED: SODIUM CHLORIDE 0.9% 500 ML 500 ML IV STA (17:53)
--- NOTE | 2021-03-07 17:53 | ED ---
General Adult HPI - General Chief complaint: Upper Respiratory Infection Stated complaint: Covid+,Abd pain Time Seen by Provider: 03/07/21 17:36 Source: patient, RN notes reviewed, old records reviewed Mode of arrival: ambulatory Limitations: no limitations - History of Present Illness Initial comments: This is a 40-year-old well-appearing female that presents to the emergency room with abdominal pain. She does have a fever in the emergency room. She states that she was exposed to family members that were Covid positive. She does have history of irritable bowel syndrome. She states that she does have some diarrhea and some right upper abdominal pain. She denies any medical history. She takes Reglan daily. She states that she does use marijuana but no other illicit drug use or alcohol use. -: days(s) (10) Location: abdomen (right upper) Radiation: non-radiation Quality: other (full) Consistency: constant Improves with: none Worsens with: movement, other Associated Symptoms: fever/chills, other (diarrhea) Treatments Prior to Arrival: none - Related Data Home Medications Medication Instructions Recorded Confirmed Metoclopramide [Reglan] 5 mg PO AC-BID 02/13/21 03/07/21 Omeprazole 40 mg PO DAILY 02/13/21 03/07/21 Allergies Allergy/AdvReac Type Severity Reaction Status Date / Time Penicillins AdvReac Unknown Verified 03/07/21 17:52 Childhood sulfamethoxazole AdvReac Unknown Verified 03/07/21 17:52 [From Bactrim] trimethoprim [From Bactrim] AdvReac Unknown Verified 03/07/21 17:52 Review of Systems ROS Statement: Those systems with pertinent positive or pertinent negative responses have been documented in the HPI. ROS Other: All systems not noted in ROS Statement are negative. Past Medical History Past Medical History: GERD/Reflux Additional Past Medical History / Comment(s): HAS HAD DIARRHEA FOR OVER A YEAR AND GI ISSUES History of Any Multi-Drug Resistant Organisms: None Reported Past Surgical History: No Surgical Hx Reported Additional Past Surgical History / Comment(s): cervical CRYOTHERAPY. SPINAL BLOCKS, colonoscopy and EGD Past Anesthesia/Blood Transfusion Reactions: No Reported Reaction Past Psychological History: Anxiety, Depression Smoking Status: Former smoker Past Alcohol Use History: None Reported Past Drug Use History: None Reported - Past Family History Father Family Medical History: Deep Vein Thrombosis (DVT) General Exam Limitations: no limitations General appearance: alert, in no apparent distress Head exam: Present: atraumatic, normocephalic, normal inspection Eye exam: Present: normal appearance, EOMI ENT exam: Present: normal exam, normal oropharynx, mucous membranes moist Neck exam: Present: normal inspection, full ROM. Absent: tenderness, meningismus, lymphadenopathy, thyromegaly Respiratory exam: Present: normal lung sounds bilaterally. Absent: respiratory distress, wheezes, rales, rhonchi, stridor, chest wall tenderness, accessory muscle use, decreased breath sounds Cardiovascular Exam: Present: regular rate, normal rhythm, normal heart sounds. Absent: systolic murmur, diastolic murmur, rubs, gallop, clicks GI/Abdominal exam: Present: soft, normal bowel sounds. Absent: distended Extremities exam: Present: normal inspection, full ROM, normal capillary refill. Absent: tenderness, pedal edema, joint swelling, calf tenderness Back exam: Absent: tenderness, CVA tenderness (R), CVA tenderness (L) Neurological exam: Present: alert, oriented X3 Psychiatric exam: Present: normal affect, normal mood Skin exam: Present: warm, dry, intact, normal color. Absent: rash Course Vital Signs 03/07/21 03/07/21 03/07/21 15:16 18:51 19:30 Temperature 100.2 F H Pulse Rate 71 69 61 Respiratory 18 18 18 Rate Blood Pressure 159/94 121/72 125/68 O2 Sat by Pulse 98 98 97 Oximetry 03/07/21 20:30 Temperature 98.5 F Pulse Rate 75 Respiratory 18 Rate Blood Pressure 135/82 O2 Sat by Pulse 99 Oximetry Medical Decision Making - Medical Decision Making Patient presents to the emergency room after being exposed to the coronavirus. She also has a fever and some abdominal pain she states that the pain is right upper quadrant. Ultrasound of the abdomen shows no acute findings, gallbladder normal, normal-appearing common bile duct measuring 4 mm, pancreas normal liver normal. There is no evidence of leukocytosis. Electrolytes are unremarkable. Her UA shows 4+ ketones and she was given 1 L normal saline. There is no evidence of infection. Her coronavirus PCR is positive. She was given the monoclonal antibodies infusion. Her oxygen saturation is 98% on room air. She tolerated the infusion well and she was discharged home to follow up with her primary care doctor and return if any new or worsening symptoms. She is also directed to self quarantine for 10 days after symptom onset and 24 hours without fever. Patient is agreeable to this plan of care - Lab Data Result diagrams: 03/07/21 18:23 03/07/21 18:23 Lab Results 03/07/21 03/07/21 03/07/21 Range/Units 15:23 18:23 18:23 WBC 5.0 (3.8-10.6) k/uL RBC 4.49 (3.80-5.40) m/uL Hgb 13.6 (11.4-16.0) gm/dL Hct 39.1 (34.0-46.0) % MCV 86.9 (80.0-100.0) fL MCH 30.3 (25.0-35.0) pg MCHC 34.9 (31.0-37.0) g/dL RDW 13.3 (11.5-15.5) % Plt Count 358 (150-450) k/uL MPV 7.0 Neutrophils % 60 % Lymphocytes % 29 % Monocytes % 8 % Eosinophils % 1 % Basophils % 0 % Neutrophils # 3.0 (1.3-7.7) k/uL Lymphocytes # 1.5 (1.0-4.8) k/uL Monocytes # 0.4 (0-1.0) k/uL Eosinophils # 0.0 (0-0.7) k/uL Basophils # 0.0 (0-0.2) k/uL Sodium (137-145) mmol/L Potassium (3.5-5.1) mmol/L Chloride (98-107) mmol/L Carbon Dioxide (22-30) mmol/L Anion Gap mmol/L BUN (7-17) mg/dL Creatinine (0.52-1.04) mg/dL Est GFR (CKD-EPI)AfAm (>60 ml/min/1.73 sqM) Est GFR (CKD-EPI)NonAf (>60 ml/min/1.73 sqM) Glucose (74-99) mg/dL Calcium (8.4-10.2) mg/dL Total Bilirubin (0.2-1.3) mg/dL AST (14-36) U/L ALT (4-34) U/L Alkaline Phosphatase (38-126) U/L Total Protein (6.3-8.2) g/dL Albumin (3.5-5.0) g/dL Amylase (30-110) U/L Lipase (23-300) U/L Urine Color Yellow Urine Appearance Cloudy H (Clear) Urine pH 6.5 (5.0-8.0) Ur Specific [place] 1.025 (1.001-1.035) Urine Protein Trace H (Negative) Urine Glucose (UA) Negative (Negative) Urine Ketones 4+ H (Negative) Urine Blood Negative (Negative) Urine Nitrite Negative (Negative) Urine Bilirubin Negative (Negative) Urine Urobilinogen 2.0 (<2.0) mg/dL Ur Leukocyte Esterase Negative (Negative) Urine RBC 8 H (0-5) /hpf Urine WBC 3 (0-5) /hpf Ur Squamous Epith Cells 15 H (0-4) /hpf Urine Bacteria Rare H (None) /hpf Urine Mucus Many H (None) /hpf Coronavirus (PCR) Detected A (Not Detectd) 03/07/21 Range/Units 18:23 WBC (3.8-10.6) k/uL RBC (3.80-5.40) m/uL Hgb (11.4-16.0) gm/dL Hct (34.0-46.0) % MCV (80.0-100.0) fL MCH (25.0-35.0) pg MCHC (31.0-37.0) g/dL RDW (11.5-15.5) % Plt Count (150-450) k/uL MPV Neutrophils % % Lymphocytes % % Monocytes % % Eosinophils % % Basophils % % Neutrophils # (1.3-7.7) k/uL Lymphocytes # (1.0-4.8) k/uL Monocytes # (0-1.0) k/uL Eosinophils # (0-0.7) k/uL Basophils # (0-0.2) k/uL Sodium 138 (137-145) mmol/L Potassium 3.6 (3.5-5.1) mmol/L Chloride 107 (98-107) mmol/L Carbon Dioxide 23 (22-30) mmol/L Anion Gap 8 mmol/L BUN 8 (7-17) mg/dL Creatinine 0.51 L (0.52-1.04) mg/dL Est GFR (CKD-EPI)AfAm >90 (>60 ml/min/1.73 sqM) Est GFR (CKD-EPI)NonAf >90 (>60 ml/min/1.73 sqM) Glucose 93 (74-99) mg/dL Calcium 9.6 (8.4-10.2) mg/dL Total Bilirubin 0.4 (0.2-1.3) mg/dL AST 27 (14-36) U/L ALT 14 (4-34) U/L Alkaline Phosphatase 61 (38-126) U/L Total Protein 7.4 (6.3-8.2) g/dL Albumin 4.5 (3.5-5.0) g/dL Amylase 82 (30-110) U/L Lipase 84 (23-300) U/L Urine Color Urine Appearance (Clear) Urine pH (5.0-8.0) Ur Specific [place] (1.001-1.035) Urine Protein (Negative) Urine Glucose (UA) (Negative) Urine Ketones (Negative) Urine Blood (Negative) Urine Nitrite (Negative) Urine Bilirubin (Negative) Urine Urobilinogen (<2.0) mg/dL Ur Leukocyte Esterase (Negative) Urine RBC (0-5) /hpf Urine WBC (0-5) /hpf Ur Squamous Epith Cells (0-4) /hpf Urine Bacteria (None) /hpf Urine Mucus (None) /hpf Coronavirus (PCR) (Not Detectd) Disposition Clinical Impression: COVID-19 Disposition: HOME SELF-CARE Condition: Good Instructions (If sedation given, give patient instructions): Coronavirus Disease 2019 (COVID-19) Additional Instructions: Return to the emergency room with any new or worsening symptoms. Follow-up with the primary care doctor next week. You can take Tylenol and or Motrin as needed for any body aches or fevers. Is patient prescribed a controlled substance at d/c from ED?: No Referrals: Dileep Turner MD [Primary Care Provider] - 1-2 days
[2021-03-07] MEDS ORDERED: SODIUM CHLORIDE 0.9% 50 ML IVPB ONE (18:15)
[2021-03-07] MEDS ORDERED: BAMLANIVIMAB (EUA) 700 MG, ETESEVIMAB (EUA) 1,400 MG in SODIUM CHLORIDE 0.9% 50 ML IVPB ONE (18:30)
[2021-03-07 18:34] LABS: Basophils % (A) 0 %; Eosinophils % (A) 1 %; HCT 39.1 % (34.0-46.0); HGB 13.6 gm/dL (11.4-16.0); Lymphocytes # (A) 1.5 k/uL (1.0-4.8); Lymphocytes % (A) 29 %; MCH 30.3 pg (25.0-35.0); MCHC 34.9 g/dL (31.0-37.0); MCV 86.9 fL (80.0-100.0); Monocytes # (A) 0.4 k/uL (0-1.0); Monocytes % (A) 8 %; Neutrophils % (A) 60 %; Platelet Count 358 k/uL (150-450); RBC 4.49 m/uL (3.80-5.40); RDW 13.3 % (11.5-15.5)
[2021-03-07 18:43] LABS: Appearance,Urine Cloudy (Clear); Bacteria,Urine Rare /hpf; Bilirubin,Urine Negative (Negative); Blood,Urine Negative (Negative); Color,Urine Yellow; Glucose,Urine (UA) Negative (Negative); Ketones,Urine 4+ (Negative); Leukocyte Esterase,Urine Negative (Negative); Mucus,Urine Many /hpf; Nitrite,Urine Negative (Negative); PH, Urine 6.5 (5.0-8.0); Protein,Urine Trace (Negative); RBC,Urine 8 /hpf (0-5); Specific Gravity,Urine 1.025 (1.001-1.035); Squamous Epithelial Cell,Urine 15 /hpf (0-4); WBC,Urine 3 /hpf (0-5)
[2021-03-07 18:52] LABS: ALT 14 U/L (4-34); AST 27 U/L (14-36); African American GFR (CKD) >90 (>60 ml/min/1.73 sqM); Albumin 4.5 g/dL (3.5-5.0); Alkaline Phosphatase 61 U/L (38-126); Amylase 82 U/L (30-110); Anion Gap 8 mmol/L; Blood Urea Nitrogen 8 mg/dL (7-17); Calcium 9.6 mg/dL (8.4-10.2); Carbon Dioxide 23 mmol/L (22-30); Chloride 107 mmol/L (98-107); Glucose 93 mg/dL (74-99); Lipase 84 U/L (23-300); Non-African American GFR(CKD) >90 (>60 ml/min/1.73 sqM); Sodium 138 mmol/L (137-145); Total Bilirubin 0.4 mg/dL (0.2-1.3); Total Protein 7.4 g/dL (6.3-8.2)
[2021-03-07 18:54] LABS: Potassium 3.6 mmol/L (3.5-5.1)
--- NOTE | 2021-03-07 19:07 | US ---
EXAMINATION TYPE: US abdomen limited DATE OF EXAM: 03/07/2021 COMPARISON: CT 06/04/20 CLINICAL HISTORY: RUQ . Covid + , RUQ pain x 1 day EXAM MEASUREMENTS: Liver Length: 16.8 Gallbladder Wall: 0.2mm CBD: 0.4mm Right Kidney: 10.8 x 4.7 x 4.2 cm Pancreas: Normal where visualized. Liver: Normal. Gallbladder: Normal. Barrel Leveler reports negative sonographic Pugh sign. CBD: Normal in caliber measuring 4 mm. Right Kidney: Normal. Additional scanning of the right upper quadrant in patient's reported region of pain demonstrates no focal abnormality. IMPRESSION: Normal limited abdominal ultrasound. No acute findings to explain patient's abdominal pain.
[2021-03-07] MEDS ORDERED: SODIUM CHLORIDE 0.9% 500 ML 500 ML IV ONE (19:12)
[2021-03-07 20:31] VITALS: BP 135/82; PULSE 75; TEMP 98.5
== END 2021-03-07 20:37 | disposition home or self-care (01) ==
LOC: EC 13:47
DX: U07.1 COVID-19 (principal); K21.9 Gastro-esophageal reflux disease without esophagitis; Z87.891 Personal history of nicotine dependence; Z79.899 Other long term (current) drug therapy
CPT/HCPCS: 36415; 80053; 82150; 83690; 85025; 81001; 81025; 87635; 76705; 99284; 96365; J3490

== ENCOUNTER 2021-05-27 08:58 | Emergency (ER) | payer MEDICARE ==
[2021-05-27 09:09] VITALS: RESP 18; TEMP 98.8
[2021-05-27] MEDS ORDERED: MORPHINE SULFATE 4 MG/ML SYRINGE IV STA (09:26)
[2021-05-27] MEDS ORDERED: SODIUM CHLORIDE 0.9% 1,000 ML IV STA (09:26)
--- NOTE | 2021-05-27 09:28 | ED ---
General Adult HPI - General Chief complaint: Abdominal Pain Stated complaint: Lower Abd pain & nausea Time Seen by Provider: 05/27/21 09:15 Source: patient Mode of arrival: ambulatory Limitations: no limitations - History of Present Illness Initial comments: 40-year-old female presents to the emergency room for a chief complaint of abdominal pain. Patient states she has had GI issues for years. States she has had diarrhea for 2 years secondary to IBS. States she had both an EGD and a colonoscopy by Dr. Richardson that did not reveal any issues. She has also had this right-sided abdominal pain that she had an ultrasound of her gallbladder for as well as other tests. However over the past week she has had worsening right lower quadrant pain. States he feels that there is something swelling in her abdomen. States urgent care sent her over for imaging.Patient has no other complaints at this time including shortness of breath, chest pain, nausea or vomiting, headache, or visual changes. - Related Data Home Medications Medication Instructions Recorded Confirmed Metoclopramide [Reglan] 5 mg PO AC-BID 02/13/21 03/07/21 Omeprazole 40 mg PO DAILY 02/13/21 03/07/21 Allergies Allergy/AdvReac Type Severity Reaction Status Date / Time Penicillins AdvReac Unknown Verified 05/27/21 09:09 Childhood sulfamethoxazole AdvReac Unknown Verified 05/27/21 09:09 [From Bactrim] trimethoprim [From Bactrim] AdvReac Unknown Verified 05/27/21 09:09 Review of Systems ROS Statement: Those systems with pertinent positive or pertinent negative responses have been documented in the HPI. ROS Other: All systems not noted in ROS Statement are negative. Past Medical History Past Medical History: GERD/Reflux Additional Past Medical History / Comment(s): HAS HAD DIARRHEA FOR OVER A YEAR AND GI ISSUES History of Any Multi-Drug Resistant Organisms: None Reported Past Surgical History: No Surgical Hx Reported Additional Past Surgical History / Comment(s): cervical CRYOTHERAPY. SPINAL BLOCKS, colonoscopy and EGD Past Anesthesia/Blood Transfusion Reactions: No Reported Reaction Past Psychological History: Anxiety, Depression Smoking Status: Former smoker Past Alcohol Use History: None Reported Past Drug Use History: None Reported - Past Family History Father Family Medical History: Deep Vein Thrombosis (DVT) General Exam Limitations: no limitations General appearance: alert, in no apparent distress Head exam: Present: atraumatic Eye exam: Present: normal appearance, PERRL, EOMI. Absent: scleral icterus, conjunctival injection ENT exam: Present: normal exam, mucous membranes moist Neck exam: Present: normal inspection, full ROM. Absent: tenderness Respiratory exam: Present: normal lung sounds bilaterally. Absent: respiratory distress, wheezes Cardiovascular Exam: Present: regular rate, normal rhythm, normal heart sounds GI/Abdominal exam: Present: soft, tenderness (Right lower quadrant tenderness), normal bowel sounds. Absent: distended, guarding, rebound Neurological exam: Present: alert Course Vital Signs 05/27/21 09:05 Temperature 98.8 F Pulse Rate 70 Respiratory 18 Rate Blood Pressure 136/78 O2 Sat by Pulse 96 Oximetry Medical Decision Making - Medical Decision Making Vitals are stable. Patient is well-appearing. Patient presents for relatively chronic pain in the right lower quadrant. This ongoing for quite sometime, worsening in the past few weeks. I have a evaluation is unremarkable. Urinalysis does not show any evidence of infection CT abdomen and pelvis shows a right ovarian cyst measuring 2.4 cm which appears stable from a year ago. Patient does not have any pain or severe pain consistent with torsion. At this time patient can be discharged to follow-up with primary care. She will return here for any worsening symptoms. - Lab Data Result diagrams: 05/27/21 09:45 05/27/21 09:45 Lab Results 05/27/21 05/27/21 05/27/21 Range/Units 09:45 09:45 09:45 WBC 9.1 (3.8-10.6) k/uL RBC 4.80 (3.80-5.40) m/uL Hgb 13.7 (11.4-16.0) gm/dL Hct 43.1 (34.0-46.0) % MCV 89.9 (80.0-100.0) fL MCH 28.6 (25.0-35.0) pg MCHC 31.8 (31.0-37.0) g/dL RDW 13.3 (11.5-15.5) % Plt Count 383 (150-450) k/uL MPV 6.8 Neutrophils % 74 % Lymphocytes % 20 % Monocytes % 4 % Eosinophils % 1 % Basophils % 0 % Neutrophils # 6.8 (1.3-7.7) k/uL Lymphocytes # 1.8 (1.0-4.8) k/uL Monocytes # 0.3 (0-1.0) k/uL Eosinophils # 0.1 (0-0.7) k/uL Basophils # 0.0 (0-0.2) k/uL Sodium (137-145) mmol/L Potassium (3.5-5.1) mmol/L Chloride (98-107) mmol/L Carbon Dioxide (22-30) mmol/L Anion Gap mmol/L BUN (7-17) mg/dL Creatinine (0.52-1.04) mg/dL Est GFR (CKD-EPI)AfAm (>60 ml/min/1.73 sqM) Est GFR (CKD-EPI)NonAf (>60 ml/min/1.73 sqM) Glucose (74-99) mg/dL Calcium (8.4-10.2) mg/dL Total Bilirubin (0.2-1.3) mg/dL AST (14-36) U/L ALT (4-34) U/L Alkaline Phosphatase (38-126) U/L Total Protein (6.3-8.2) g/dL Albumin (3.5-5.0) g/dL Amylase (30-110) U/L Lipase (23-300) U/L Urine Color Yellow Urine Appearance Cloudy H (Clear) Urine pH 7.0 (5.0-8.0) Ur Specific [place] 1.025 (1.001-1.035) Urine Protein 1+ H (Negative) Urine Glucose (UA) Negative (Negative) Urine Ketones 1+ H (Negative) Urine Blood Negative (Negative) Urine Nitrite Negative (Negative) Urine Bilirubin Negative (Negative) Urine Urobilinogen <2.0 (<2.0) mg/dL Ur Leukocyte Esterase Negative (Negative) Urine RBC 5 (0-5) /hpf Urine WBC 2 (0-5) /hpf Ur Squamous Epith Cells 3 (0-4) /hpf Urine Mucus Many H (None) /hpf Urine HCG, Qual Not Detected (Not Detectd) 05/27/21 Range/Units 09:45 WBC (3.8-10.6) k/uL RBC (3.80-5.40) m/uL Hgb (11.4-16.0) gm/dL Hct (34.0-46.0) % MCV (80.0-100.0) fL MCH (25.0-35.0) pg MCHC (31.0-37.0) g/dL RDW (11.5-15.5) % Plt Count (150-450) k/uL MPV Neutrophils % % Lymphocytes % % Monocytes % % Eosinophils % % Basophils % % Neutrophils # (1.3-7.7) k/uL Lymphocytes # (1.0-4.8) k/uL Monocytes # (0-1.0) k/uL Eosinophils # (0-0.7) k/uL Basophils # (0-0.2) k/uL Sodium 140 (137-145) mmol/L Potassium 3.7 (3.5-5.1) mmol/L Chloride 108 H (98-107) mmol/L Carbon Dioxide 25 (22-30) mmol/L Anion Gap 7 mmol/L BUN 12 (7-17) mg/dL Creatinine 0.69 (0.52-1.04) mg/dL Est GFR (CKD-EPI)AfAm >90 (>60 ml/min/1.73 sqM) Est GFR (CKD-EPI)NonAf >90 (>60 ml/min/1.73 sqM) Glucose 113 H (74-99) mg/dL Calcium 10.1 (8.4-10.2) mg/dL Total Bilirubin 0.7 (0.2-1.3) mg/dL AST 18 (14-36) U/L ALT 13 (4-34) U/L Alkaline Phosphatase 72 (38-126) U/L Total Protein 7.9 (6.3-8.2) g/dL Albumin 4.7 (3.5-5.0) g/dL Amylase 75 (30-110) U/L Lipase 76 (23-300) U/L Urine Color Urine Appearance (Clear) Urine pH (5.0-8.0) Ur Specific [place] (1.001-1.035) Urine Protein (Negative) Urine Glucose (UA) (Negative) Urine Ketones (Negative) Urine Blood (Negative) Urine Nitrite (Negative) Urine Bilirubin (Negative) Urine Urobilinogen (<2.0) mg/dL Ur Leukocyte Esterase (Negative) Urine RBC (0-5) /hpf Urine WBC (0-5) /hpf Ur Squamous Epith Cells (0-4) /hpf Urine Mucus (None) /hpf Urine HCG, Qual (Not Detectd) Disposition Clinical Impression: Abdominal pain, Ovarian cyst Disposition: HOME SELF-CARE Condition: Good Instructions (If sedation given, give patient instructions): Abdominal Pain (ED) Additional Instructions: Please take Motrin and Tylenol for pain. Follow-up with your doctor in one to 2 days. Return to the emergency room for any worsening symptoms. Is patient prescribed a controlled substance at d/c from ED?: No Referrals: Dileep Turner MD [Primary Care Provider] - 1-2 days Time of Disposition: 10:44
[2021-05-27] MEDS ORDERED: ONDANSETRON 4 MG/2 ML VIAL IVP STA (09:52)
[2021-05-27 09:58] LABS: Basophils % (A) 0 %; Eosinophils # (A) 0.1 k/uL (0-0.7); Eosinophils % (A) 1 %; HCT 43.1 % (34.0-46.0); HGB 13.7 gm/dL (11.4-16.0); Lymphocytes # (A) 1.8 k/uL (1.0-4.8); Lymphocytes % (A) 20 %; MCH 28.6 pg (25.0-35.0); MCHC 31.8 g/dL (31.0-37.0); MCV 89.9 fL (80.0-100.0); Mean Platelet Volume 6.8; Monocytes # (A) 0.3 k/uL (0-1.0); Monocytes % (A) 4 %; Neutrophils # (A) 6.8 k/uL (1.3-7.7); Neutrophils % (A) 74 %; Platelet Count 383 k/uL (150-450); RDW 13.3 % (11.5-15.5); WBC 9.1 k/uL (3.8-10.6)
[2021-05-27 10:09] LABS: ALT 13 U/L (4-34); AST 18 U/L (14-36); African American GFR (CKD) >90 (>60 ml/min/1.73 sqM); Albumin 4.7 g/dL (3.5-5.0); Alkaline Phosphatase 72 U/L (38-126); Amylase 75 U/L (30-110); Anion Gap 7 mmol/L; Blood Urea Nitrogen 12 mg/dL (7-17); Calcium 10.1 mg/dL (8.4-10.2); Carbon Dioxide 25 mmol/L (22-30); Chloride 108 mmol/L (98-107); Glucose 113 mg/dL (74-99); Lipase 76 U/L (23-300); Non-African American GFR(CKD) >90 (>60 ml/min/1.73 sqM); Potassium 3.7 mmol/L (3.5-5.1); Sodium 140 mmol/L (137-145); Total Bilirubin 0.7 mg/dL (0.2-1.3); Total Protein 7.9 g/dL (6.3-8.2)
[2021-05-27 10:15] LABS: Appearance,Urine Cloudy (Clear); Bilirubin,Urine Negative (Negative); Blood,Urine Negative (Negative); Color,Urine Yellow; Glucose,Urine (UA) Negative (Negative); Ketones,Urine 1+ (Negative); Leukocyte Esterase,Urine Negative (Negative); Mucus,Urine Many /hpf; Nitrite,Urine Negative (Negative); Protein,Urine 1+ (Negative); RBC,Urine 5 /hpf (0-5); Specific Gravity,Urine 1.025 (1.001-1.035); Squamous Epithelial Cell,Urine 3 /hpf (0-4); Urobilinogen,Urine <2.0 mg/dL (<2.0); WBC,Urine 2 /hpf (0-5)
--- NOTE | 2021-05-27 10:39 | CT ---
EXAMINATION TYPE: CT abdomen pelvis w con DATE OF EXAM: 05/27/2021 COMPARISON: 06/04/2020 HISTORY: rlq pain, appendicitis CT DLP: 1144.8 mGycm CONTRAST: CT scan of the abdomen and pelvis is performed without Oral Contrast and with IV Contrast, patient in jected with 100 mL of Isovue 300. FINDINGS: LUNG BASES-: No visible nodule. No infiltrate. LIVER/GB: No calcified gallstones. No space occupying hepatic lesion. Biliary tree is of normal ca liber. PANCREAS: No inflammation. No distinct mass. SPLEEN: No splenic enlargement. No lesion seen. ADRENALS: No nodule. No thickening. KIDNEYS/BLADDER: No hydronephrosis. No nephrolithiasis. No distinct renal mass. Urinary bladder g rossly unremarkable. BOWEL: Normal appendix. Normal bowel caliber. No inflammation. GENITAL ORGANS: There is a right ovarian cyst measuring 2.4 cm. The left ovary is unremarkable as is the uterus. LYMPH NODES: No greater than 1cm abdominal or pelvic lymph nodes are appreciated. AORTA: No significant abnormality. OSSEOUS STRUCTURES: No significant abnormality is seen. OTHER: No significant additional abnormality is seen. IMPRESSION: 1. Normal-appearing appendix. 2. Right ovarian cyst measuring 2.4 cm. Prior measurement is 2.6 cm.
[2021-05-27] MEDS ORDERED: MORPHINE SULFATE 2 MG/ML SYRINGE IVP STA (11:20)
[2021-05-27 11:36] VITALS: BP 124/77; PULSE 64
== END 2021-05-27 11:36 | disposition home or self-care (01) ==
LOC: EC 08:58
DX: N83.201 Unspecified ovarian cyst, right side (principal); K21.9 Gastro-esophageal reflux disease without esophagitis; F32.A Depression, unspecified; F41.9 Anxiety disorder, unspecified; Z79.899 Other long term (current) drug therapy
CPT/HCPCS: 36415; 80053; 82150; 83690; 85025; 81001; 81025; 74177; 99284; 96374; 96375; 96376; 96361; J2270 ×2; J2405; Q9967

== ENCOUNTER 2021-06-15 00:37 | Emergency (ER) | payer MEDICARE ==
[2021-06-15 00:52] VITALS: TEMP 97.9
[2021-06-15] MEDS ORDERED: SODIUM CHLORIDE 0.9% 500 ML 500 ML IV STA (01:05)
--- NOTE | 2021-06-15 01:22 | ED ---
General Adult HPI - General Chief complaint: GI Bleed Stated complaint: Bleeding Time Seen by Provider: 06/15/21 01:10 Source: patient, family, RN notes reviewed, old records reviewed Mode of arrival: ambulatory Limitations: no limitations - History of Present Illness Initial comments: 40-year-old female presents to the emergency room with an episode of rectal bleeding with some nausea tonight. Patient states that she had a bowel movement and she wipes and seen blood on the paper. There is no blood in the toilet. She has no abdominal pain. She does have irritable bowel and sees Dr. Rinaldi. No previous abdominal surgeries. -: hour(s) Severity scale (1-10): 0 - Related Data Home Medications Medication Instructions Recorded Confirmed Metoclopramide [Reglan] 5 mg PO AC-BID 02/13/21 05/27/21 Omeprazole 40 mg PO DAILY 02/13/21 05/27/21 Ascorbic Acid [Vitamin C] 500 mg PO DAILY 05/27/21 05/27/21 Cyanocobalamin (Vitamin B-12) 500 mcg PO DAILY 05/27/21 05/27/21 [Vitamin B-12] Ferrous Sulfate [Feosol] 325 mg PO DAILY 05/27/21 05/27/21 Previous Rx's Medication Instructions Recorded Ondansetron [Zofran ODT] 4 mg PO Q8HR PRN #15 tab 05/27/21 Allergies Allergy/AdvReac Type Severity Reaction Status Date / Time Penicillins AdvReac Unknown Verified 06/15/21 00:52 Childhood sulfamethoxazole AdvReac Unknown Verified 06/15/21 00:52 [From Bactrim] trimethoprim [From Bactrim] AdvReac Unknown Verified 06/15/21 00:52 Review of Systems ROS Statement: Those systems with pertinent positive or pertinent negative responses have been documented in the HPI. ROS Other: All systems not noted in ROS Statement are negative. Past Medical History Past Medical History: GERD/Reflux Additional Past Medical History / Comment(s): HAS HAD DIARRHEA FOR OVER A YEAR AND GI ISSUES History of Any Multi-Drug Resistant Organisms: None Reported Past Surgical History: No Surgical Hx Reported Additional Past Surgical History / Comment(s): cervical CRYOTHERAPY. SPINAL BLOCKS, colonoscopy and EGD Past Anesthesia/Blood Transfusion Reactions: No Reported Reaction Past Psychological History: Anxiety, Depression Smoking Status: Former smoker Past Alcohol Use History: None Reported Past Drug Use History: None Reported - Past Family History Father Family Medical History: Deep Vein Thrombosis (DVT) General Exam Limitations: no limitations General appearance: alert, in no apparent distress Eye exam: Present: normal appearance Respiratory exam: Present: normal lung sounds bilaterally. Absent: respiratory distress, chest wall tenderness, accessory muscle use, decreased breath sounds Cardiovascular Exam: Present: regular rate, normal heart sounds. Absent: JVD GI/Abdominal exam: Present: soft. Absent: distended, tenderness, guarding, rebound, rigid Rectal exam: Present: normal inspection, normal rectal tone. Absent: fecal impaction, mass Extremities exam: Present: normal inspection, full ROM, normal capillary refill. Absent: tenderness, pedal edema, joint swelling, calf tenderness Back exam: Present: normal inspection, full ROM. Absent: tenderness, CVA tenderness (R), CVA tenderness (L), rash noted Neurological exam: Present: alert, oriented X3, normal gait Psychiatric exam: Present: normal affect, normal mood Skin exam: Present: warm, dry, intact, normal color. Absent: cyanosis, diaphoretic, pallor Course Vital Signs 06/15/21 06/15/21 00:41 03:09 Temperature 97.9 F Pulse Rate 71 81 Respiratory 22 16 Rate Blood Pressure 146/89 135/82 O2 Sat by Pulse 97 99 Oximetry Medical Decision Making - Medical Decision Making Rectal exam there is no evidence of fissures or external hemorrhoids. Occult blood is negative. Hemoglobin and hematocrit are stable. Vital signs are stable. Abdomen soft and nontender. Patient has not had any further episodes. She did state that the blood was not in the toilet only on the paper. She'll be referred to Dr. Richardson her GI doctor and directed to return if any new or worsening symptoms. - Lab Data Result diagrams: 06/15/21 02:15 Lab Results 06/15/21 06/15/21 Range/Units 01:21 02:15 WBC 10.1 (3.8-10.6) k/uL RBC 4.52 (3.80-5.40) m/uL Hgb 13.5 (11.4-16.0) gm/dL Hct 40.6 (34.0-46.0) % MCV 90.0 (80.0-100.0) fL MCH 30.0 (25.0-35.0) pg MCHC 33.3 (31.0-37.0) g/dL RDW 13.3 (11.5-15.5) % Plt Count 367 (150-450) k/uL MPV 6.9 Neutrophils % 65 % Lymphocytes % 24 % Monocytes % 6 % Eosinophils % 2 % Basophils % 0 % Neutrophils # 6.6 (1.3-7.7) k/uL Lymphocytes # 2.5 (1.0-4.8) k/uL Monocytes # 0.6 (0-1.0) k/uL Eosinophils # 0.2 (0-0.7) k/uL Basophils # 0.0 (0-0.2) k/uL Stool Occult Blood Negative (Negative) Disposition Clinical Impression: Rectal bleeding Disposition: HOME SELF-CARE Condition: Good Instructions (If sedation given, give patient instructions): Gastrointestinal Bleeding (ED) Additional Instructions: Return to the emergency room with any new or worsening symptoms. Follow-up with your shelter monitor and primary care doctor next week. Is patient prescribed a controlled substance at d/c from ED?: No Referrals: Dileep Turner MD [Primary Care Provider] - 1-2 days Radha Richardson MD [STAFF PHYSICIAN] - 1-2 days Time of Disposition: 02:49
[2021-06-15] MEDS: ONDANSETRON ODT 4 MG TAB PO STA (01:24)
[2021-06-15 02:45] LABS: Basophils % (A) 0 %; Eosinophils # (A) 0.2 k/uL (0-0.7); Eosinophils % (A) 2 %; HCT 40.6 % (34.0-46.0); HGB 13.5 gm/dL (11.4-16.0); Lymphocytes # (A) 2.5 k/uL (1.0-4.8); Lymphocytes % (A) 24 %; MCHC 33.3 g/dL (31.0-37.0); Mean Platelet Volume 6.9; Monocytes # (A) 0.6 k/uL (0-1.0); Monocytes % (A) 6 %; Neutrophils # (A) 6.6 k/uL (1.3-7.7); Neutrophils % (A) 65 %; Platelet Count 367 k/uL (150-450); RBC 4.52 m/uL (3.80-5.40); RDW 13.3 % (11.5-15.5); WBC 10.1 k/uL (3.8-10.6)
[2021-06-15 03:11] VITALS: BP 135/82; PULSE 81; RESP 16
== END 2021-06-15 03:11 | disposition home or self-care (01) ==
LOC: EC 00:37
DX: K62.5 Hemorrhage of anus and rectum (principal); K21.9 Gastro-esophageal reflux disease without esophagitis; F41.9 Anxiety disorder, unspecified; F32.A Depression, unspecified; Z87.891 Personal history of nicotine dependence
CPT/HCPCS: 36415; 82272; 85025; 99283

== ENCOUNTER → 2023-06-02 | Outpatient (CLI) | payer MEDICARE ==
[2023-06-02 10:41] LABS: Basophils % (A) 0 %; Eosinophils % (A) 0 %; HCT 43.3 % (34.0-46.0); HGB 14.3 gm/dL (11.4-16.0); Lymphocytes % (A) 29 %; MCH 30.4 pg (25.0-35.0); MCHC 33.1 g/dL (31.0-37.0); MCV 91.9 fL (80.0-100.0); Mean Platelet Volume 6.9; Monocytes # (A) 0.3 k/uL (0-1.0); Monocytes % (A) 5 %; Neutrophils # (A) 4.3 k/uL (1.3-7.7); Neutrophils % (A) 65 %; Platelet Count 374 k/uL (150-450); RBC 4.71 m/uL (3.80-5.40); RDW 12.6 % (11.5-15.5); WBC 6.7 k/uL (3.8-10.6)
[2023-06-02 10:59] LABS: ALT 18 U/L (4-34); AST 22 U/L (14-36); African American GFR (CKD) >90 (>60 ml/min/1.73 sqM); Albumin 4.6 g/dL (3.5-5.0); Albumin/Globulin Ratio 1.5; Alkaline Phosphatase 69 U/L (38-126); Amylase 100 U/L (30-110); Anion Gap 7 mmol/L; Blood Urea Nitrogen 7 mg/dL (7-17); Calcium 9.8 mg/dL (8.4-10.2); Carbon Dioxide 24 mmol/L (22-30); Chloride 108 mmol/L (98-107); Glucose 106 mg/dL (74-99); Lipase 76 U/L (23-300); Non-African American GFR(CKD) >90 (>60 ml/min/1.73 sqM); Potassium 3.8 mmol/L (3.5-5.1); Sodium 139 mmol/L (137-145); Total Bilirubin 0.8 mg/dL (0.2-1.3); Total Protein 7.6 g/dL (6.3-8.2)
--- NOTE | 2023-06-02 12:34 | CT ---
EXAMINATION TYPE: CT abdomen pelvis wo/w con DATE OF EXAM: 06/02/2023 COMPARISON: 05/27/2021 INDICATION: abd pain DLP: 2168 mGycm, Automated exposure control for dose reduction was used. CONTRAST: 100 mL of Isovue 300. Study performed with Oral Contrast TECHNIQUE: Axial images were obtained from above the diaphragm to the pubic rami in the axial plane a t 5 mm thick sections. Reconstructed images are reviewed on the computer in the coronal plane. FINDINGS: Limited CT sections are obtained the lung bases. The lung bases are clear. CT ABDOMEN: Liver: Normal Spleen: Normal Pancreas: Normal Adrenal glands: The adrenal glands are normal. Gallbladder: Normal Kidneys: No masses are evident. No hydronephrosis is present. No cysts are present. No renal stone s are evident. Aorta: Normal Inferior vena cava: Normal. CT PELVIS: Loops of bowel within the abdomen and pelvis are normal. This study is without oral contrast limi ting bowel evaluation. Appendix: Normal as visualized. Urinary bladder: Normal. Genitourinary structures: There may be a 2.4 cm right ovarian cyst. This appears different than the previous right ovarian cyst. Some mild internal debris may be present. Follow-up can be performed in 6 weeks. Uterus appears unremarkable. Left adnexa appears unremarkable. Osseous structures: No suspicious lytic or sclerotic lesions. IMPRESSION: 1. Right ovarian cyst. Follow-up with ultrasound 6 weeks.
[2023-06-02 15:44] LABS: C Reactive Protein, High Sens 0.329 mg/L (0.000-3.000)
== END | disposition home or self-care (01) ==
LOC: RADCTMAIN 10:08
PROVIDERS: ATTEND Family Medicine
DX: N83.201 Unspecified ovarian cyst, right side (principal); R10.9 Unspecified abdominal pain
CPT/HCPCS: 80053; 82150; 83690; 83735; 85025; 86141; 74178; 36415; Q9967

== ENCOUNTER → 2023-08-13 | Outpatient (CLI) | payer MEDICARE, BC ==
--- NOTE | 2023-08-17 11:50 | MM ---
Reason for Exam: Screening (asymptomatic). Baseline mammogram. Patient History: Menarche at age 11. First Full-Term at age 22. Perimenopausal. Maternal aunt had breast cancer under age 50. Maternal grandmother had breast cancer under age 50. Last menstrual period: 06/13/2023 Risk Values: Korin 5 year model risk: 0.7%. NCI Lifetime model risk: 8.7%. Prior Study Comparison: Patient's first Mammogram. Tissue Density: There are scattered areas of fibroglandular density. Findings: Analyzed By CAD. Right breast: There is no suspicious group of microcalcifications or new suspicious mass. Left breast: There is no suspicious group of microcalcifications or new suspicious mass. Overall Assessment: Negative, BI-RAD 1 Management: Screening Mammogram of both breasts in [address] [facility] will attempt to contact patient to return for supplemental views and ultrasound if indicated. Patient should continue monthly self-breast exams. A clinical breast exam by your physician is recommended on an annual basis. This exam should not preclude additional follow-up of suspicious palpable abnormalities. Note on Korin scores and lifetime risk: 1. A Korin score greater than 3% is considered moderate risk. If this is the case, consider specialist referral to assess eligibility for a risk reducing agent. 2. If overall lifetime risk for the development of breast cancer is 20% or higher, the patient may qualify for future screening with alternating mammogram and breast MRI. Electronically signed and approved by: Pio Sepulveda DO
== END | disposition home or self-care (01) ==
LOC: RADMAMWWP 11:13
PROVIDERS: ATTEND Family Medicine
DX: Z12.31 Encounter for screening mammogram for malignant neoplasm of breast (principal); Z80.3 Family history of malignant neoplasm of breast
CPT/HCPCS: 77063; 77067